=== PATIENT | female | born 1960 | race Caucasian/White ===

== ENCOUNTER 2024-03-24 16:33 | Outpatient (CLI) | payer SELFPAY | END 2024-03-24 23:59 | disposition critical access hospital (66) | LOC: EMS 16:33 | DX: R53.81 Other malaise (principal); R11.10 Vomiting, unspecified; R40.4 Transient alteration of awareness | CPT/HCPCS: A0425; A0429 ==

== ENCOUNTER 2024-03-24 16:45 | Emergency (ER) | payer SELFPAY ==
--- NOTE | 2024-03-24 17:06 | ED Physician Documentation ---
History of Present Illness - Stated complaint Stated Complaint: GEN ILLNESS/VOMITING - Chief complaint Chief Complaint: Abd Pain - History obtained from History obtained from: Patient, EMS - History of Present Illness Timing: How many days ago (2) Pain level max: 5 Pain level now: 5 - Additonal information Additional information: Patient is a 63-year-old female who states that "my body feels toxic". She states that she cannot describe what she is feeling any further than that. She states that she "does not know how to describe it I just feel toxic". She does state that she had vomiting 2 days ago, had 1 episode of vomiting today. She states her entire body hurts. She has had a mild cough. No diarrhea. No blood in the stool. No blood in the emesis. She states she drinks alcohol approximately once per week. She states she did drink wine last night. She states she does not take any prescription medications at home. She states occasionally she will take a Benadryl. Patient states she is very thirsty. No fevers. No chills. No headache. No falls. No trauma. No loss of consciousness. Review of Systems Constitutional: denies: Fever, Chills Cardiac: denies: Chest pain / pressure, Palpitations Respiratory: reports: Cough (Mild, dry). denies: Dyspnea GI: reports: Nausea, Vomiting. denies: Diarrhea, Hematemesis, Bloody / black stool : denies: Dysuria, Frequency, Hesitancy Skin: denies: Rash Musculoskeletal: denies: Neck pain, Back pain Neurologic: denies: Headache PD PAST MEDICAL HISTORY - Past Medical History Past Medical History: Yes Psych: Anxiety - Past Surgical History Past Surgical History: No - Present Medications Home Medications: Ambulatory Orders Medication Instructions Recorded Confirmed Citalopram Hydrobromide [Celexa] 60 mg PO DAILY 10/17/15 10/17/15 Levothyroxine Sodium [Levoxyl] 88 mcg PO DAILY 10/17/15 10/17/15 Pseudoephedrine [Sudafed] 30 mg PO Q6H PRN #20 tablet 10/17/15 Ondansetron Odt [Zofran] 4 mg TL Q6H PRN #10 tablet 03/24/24 - Allergies Allergies/Adverse Reactions: Allergies Allergy/AdvReac Type Severity Reaction Status Date / Time acetaminophen [From Vicodin] Allergy Itching Verified 03/24/24 17:00 hydrocodone bitartrate * Allergy Itching Verified 03/24/24 17:00 [From Vicodin] - Social History Does the pt smoke?: No Smoking Status: Never smoker Does the pt have substance abuse?: No - POLST Patient has POLST: No PD ED PE NORMAL - Vitals Vital signs reviewed: Yes - General General: Alert and oriented X 3, No acute distress - HEENT HEENT: PERRL, EOMI, Other (Dry lips and tongue) - Neck Neck: Supple, no meningeal sign - Cardiac Cardiac: RRR, Strong equal pulses - Respiratory Respiratory: No respiratory distress, Clear bilaterally - Abdomen Abdomen: Soft, Non tender, Non distended - Derm Derm: Warm and dry - Neuro Neuro: Alert and oriented X 3 - Psych Psych: Normal mood, Normal affect Results - Vitals Vitals: Vital Signs - 24 hr 03/24/24 03/24/24 03/24/24 16:51 16:59 18:59 Temperature 37.1 C 37.1 C 36.8 C Heart Rate 78 78 76 Respiratory 20 20 16 Rate Blood Pressure 167/84 H 167/84 H 150/80 H O2 Saturation 97 97 98 Oxygen O2 Source Room air - Labs Labs: Laboratory Tests 03/24/24 03/24/24 03/24/24 17:09 17:09 17:18 WBC 5.5 RBC 4.23 Hgb 13.5 Hct 42.2 MCV 99.8 H MCH 31.9 H MCHC 32.0 RDW 12.9 Plt Count 210 MPV 9.4 Neut # (Auto) 3.5 Lymph # (Auto) 1.3 L Walker # (Auto) 0.4 Eos # (Auto) 0.3 Baso # (Auto) 0.0 Absolute Nucleated RBC 0.00 Nucleated RBC % 0.0 Sodium 142 Potassium 3.8 Chloride 107 Carbon Dioxide 29 Anion Gap 6.0 BUN 6 Creatinine 0.6 Estimated GFR (MDRD) 101 Glucose 99 Calcium 8.9 Phosphorus 2.5 Magnesium 1.8 Total Bilirubin 0.3 AST 34 ALT 18 Alkaline Phosphatase 60 Total Protein 6.1 L Albumin 3.8 Globulin 2.3 Albumin/Globulin Ratio 1.7 Lipase 33 Urine Color Urine Clarity Urine pH Ur Specific [place] Urine Protein Urine Glucose (UA) Urine Ketones Urine Occult Blood Urine Nitrite Urine Bilirubin Urine Urobilinogen Ur Leukocyte Esterase Ur Microscopic Review Urine Culture Comments Nasal Adenovirus (PCR) NOT DETECTED Nasal B. parapertussis DNA (PCR) NOT DETECTED Nasal Coronavir 229E PCR NOT DETECTED Nasal Coronavir HKU1 PCR NOT DETECTED Nasal Coronavir NL63 PCR NOT DETECTED Nasal Coronavir OC43 PCR NOT DETECTED Nasal Enterovir/Rhinovir PCR NOT DETECTED Nasal Influenza B PCR NOT DETECTED Nasal Influenza A PCR NOT DETECTED Nasal Parainfluen 1 PCR NOT DETECTED Nasal Parainfluen 2 PCR NOT DETECTED Nasal Parainfluen 3 PCR NOT DETECTED Nasal Parainfluen 4 PCR NOT DETECTED Nasal RSV (PCR) NOT DETECTED Nasal B.pertussis DNA PCR NOT DETECTED Nasal C.pneumoniae (PCR) NOT DETECTED Asif Human Metapneumo PCR NOT DETECTED Nasal M.pneumoniae (PCR) NOT DETECTED Nasal SARS-CoV-2 (PCR) NOT DETECTED Ethyl Alcohol 34.3 03/24/24 18:30 WBC RBC Hgb Hct MCV MCH MCHC RDW Plt Count MPV Neut # (Auto) Lymph # (Auto) Walker # (Auto) Eos # (Auto) Baso # (Auto) Absolute Nucleated RBC Nucleated RBC % Sodium Potassium Chloride Carbon Dioxide Anion Gap BUN Creatinine Estimated GFR (MDRD) Glucose Calcium Phosphorus Magnesium Total Bilirubin AST ALT Alkaline Phosphatase Total Protein Albumin Globulin Albumin/Globulin Ratio Lipase Urine Color YELLOW Urine Clarity CLEAR Urine pH 8.0 H Ur Specific [place] 1.015 Urine Protein NEGATIVE Urine Glucose (UA) NEGATIVE Urine Ketones NEGATIVE Urine Occult Blood NEGATIVE Urine Nitrite NEGATIVE Urine Bilirubin NEGATIVE Urine Urobilinogen 0.2 (NORMAL) Ur Leukocyte Esterase NEGATIVE Ur Microscopic Review NOT INDICATED Urine Culture Comments NOT INDICATED Nasal Adenovirus (PCR) Nasal B. parapertussis DNA (PCR) Nasal Coronavir 229E PCR Nasal Coronavir HKU1 PCR Nasal Coronavir NL63 PCR Nasal Coronavir OC43 PCR Nasal Enterovir/Rhinovir PCR Nasal Influenza B PCR Nasal Influenza A PCR Nasal Parainfluen 1 PCR Nasal Parainfluen 2 PCR Nasal Parainfluen 3 PCR Nasal Parainfluen 4 PCR Nasal RSV (PCR) Nasal B.pertussis DNA PCR Nasal C.pneumoniae (PCR) Asif Human Metapneumo PCR Nasal M.pneumoniae (PCR) Nasal SARS-CoV-2 (PCR) Ethyl Alcohol PD Medical Decision Making - ED course Complexity details: reviewed results, re-evaluated patient, considered differential, d/w patient ED course: 63-year-old female with nausea and vomiting for the past several days. Given IV fluids. Given droperidol. Symptoms resolved. She states that she feels "so much better". Abdomen is soft, nontender nondistended. Tolerating p.o. without difficulty. Ambulating without difficulty. Likely a viral enteritis. Will have her follow-up with her doctor for further care. Patient counseled regarding signs and symptoms for which I believe and urgent re-evaluation would be necessary. Patient with good understanding of and agreement to plan and is comfortable going home at this time This document was made in part using voice recognition software. While efforts are made to proofread this document, sound alike and grammatical errors may occur. Departure - Departure Disposition: 01 Home, Self Care Clinical Impression: Vomiting Qualifiers: Vomiting type: unspecified Nausea presence: with nausea Qualified Code(s): R11.2 - Nausea with vomiting, unspecified Condition: Good Instructions: ED Nausea Vomiting Follow-Up: your,doctor in 1 week [Other] Prescriptions: Ondansetron Odt [Zofran] 4 mg TL Q6H PRN #10 tablet PRN Reason: Nausea / Vomiting Comments: Your prescription was sent to [facility] in [place]. Please follow-up with your care for further care. Please return if you worsen. Make sure you are drinking plenty of fluids at home. This should improve over the next 24 hours. There are no significant lab abnormalities on your testing today. Forms: PCP List Discharge Date/Time: 03/24/24 19:10
[2024-03-24 17:16] LABS: BASOPHILS % (AUTO) 0.5 %; EOSINOPHILS # (AUTO) 0.3 10^3/uL (0.0-0.7); EOSINOPHILS % (AUTO) 4.9 %; HCT - HEMATOCRIT 42.2 % (37.0-47.0); HGB - HEMOGLOBIN 13.5 g/dL (12.0-16.0); LYMPHOCYTES # (AUTO) 1.3 10^3/uL (1.5-3.5); LYMPHOCYTES % (AUTO) 23.8 %; MEAN CORPUSCULAR HEMOGLOBIN 31.9 pg (27.0-31.0); MEAN CORPUSCULAR VOLUME 99.8 fL (81.0-99.0); MEAN PLATELET VOLUME 9.4 fL (7.9-10.8); MONOCYTES # (AUTO) 0.4 10^3/uL (0.0-1.0); MONOCYTES % (AUTO) 7.4 %; NEUTROPHILS # (AUTO) 3.5 10^3/uL (1.5-6.6); NEUTROPHILS % (AUTO) 63.2 %; PLT - PLATELET COUNT 210 10^3/uL (130-450); RED BLOOD COUNT 4.23 10^6/uL (4.20-5.40); RED CELL DISTRIBUTION WIDTH 12.9 % (12.0-15.0); WHITE BLOOD COUNT 5.5 x10^3/uL (4.8-10.8)
[2024-03-24] MEDS: SODIUM CHLORIDE 0.9% 1,000 ML IV STA (17:16)
[2024-03-24] MEDS: DROPERIDOL 5 MG/2 ML VIAL IVP STA (17:16)
[2024-03-24 17:28] LABS: ALBUMIN 3.8 g/dL (3.2-5.5); ALBUMIN/GLOBULIN RATIO 1.7 (1.0-2.2); BILIRUBIN,TOTAL 0.3 mg/dL (0.2-1.0); CALCIUM 8.9 mg/dL (8.5-10.3); CREATININE 0.6 mg/dL (0.6-1.3); ETOH - ETHANOL 34.3 mg/dL; MAGNESIUM 1.8 mg/dL (1.7-2.3); PHOSPHORUS 2.5 mg/dL (2.5-5.0); POTASSIUM 3.8 mmol/L (3.5-4.5); TOTAL PROTEIN 6.1 g/dL (6.4-8.9)
[2024-03-24] MEDS: LORazepam 2 MG/ML VIAL IVP STA (18:34)
[2024-03-24 18:36] LABS: B. PARAPERTUSSIS- RESP PCR PAN NOT DETECTED; B. PERTUSSIS- RESP PCR PANEL NOT DETECTED; C. PNEUMONIAE- RESP PCR PANEL NOT DETECTED; CORONAVIRUS 229E-RESP PCR NOT DETECTED; CORONAVIRUS HKU1-RESP PCR NOT DETECTED; CORONAVIRUS NL63-RESP PCR NOT DETECTED; CORONAVIRUS OC43-RESP PCR NOT DETECTED; HUMAN METAPNEUMOVIRUS NOT DETECTED; INFLUENZA A- RESP PCR PANEL NOT DETECTED; INFLUENZA B - RESP PCR PANEL NOT DETECTED; M. PNEUMONIAE- RESP PCR PANEL NOT DETECTED; PARAINFLUENZA VIRUS 1 NOT DETECTED; PARAINFLUENZA VIRUS 2 NOT DETECTED; PARAINFLUENZA VIRUS 3 NOT DETECTED; PARAINFLUENZA VIRUS 4 NOT DETECTED; RHINOVIRUS/ENTEROVIRUS NOT DETECTED; RSV- RESP PCR PANEL NOT DETECTED; SARS-CoV-2 -RESP PCR PANEL NOT DETECTED
[2024-03-24 19:00] LABS: BILIRUBIN,URINE NEGATIVE (NEGATIVE); GLUCOSE, URINE (UA) NEGATIVE (NEGATIVE); KETONES,URINE (UA) NEGATIVE (NEGATIVE); LEUKOCYTE ESTERASE, URINE NEGATIVE (NEGATIVE); NITRITE,URINE NEGATIVE (NEGATIVE); OCCULT BLOOD,URINE NEGATIVE (NEGATIVE); PROTEIN,URINE NEGATIVE (NEGATIVE); UROBILINOGEN,URINE 0.2 (NORMAL) E.U./dL (NORMAL)
[2024-03-24 19:02] LABS: CLARITY,URINE CLEAR (CLEAR)
[2024-03-24 19:16] VITALS: BP 150/80; O2SAT 98
== END 2024-03-24 19:10 | disposition home or self-care (01) ==
LOC: EDUNIT# → ED 16:45
DX: R11.2 Nausea with vomiting, unspecified (principal)
CPT/HCPCS: 36415; 80053; 81003; 82077; 83690; 83735; 84100; 85025; 87633; 96374; 99283; 99284; J2060; 81001; 87086